=== PATIENT | male | born 1975 | race Caucasian/White ===

== ENCOUNTER 2018-08-13 14:41 | Observation (INO) | payer OTHER, SELFPAY ==
[2018-07-30 12:56] VITALS: BMI 38.2
[2018-08-12] VITALS (20 sets, daily range): BP systolic 113–138; BP diastolic 55–96; PULSE 55–76; RESP 8–18; TEMP 36.2–36.6; O2SAT 92–97; BMI 38.8
[2018-08-12] MEDS: LACTATED RINGERS 1,000 ML 100 ML IV (13:35)
--- NOTE | 2018-08-12 14:51 | PM.PREOP ---
Pre-operative Note Interval Note History & Physical reviewed/Exam performed by Physician: Yes Changes to H&P: No H&P completed within 30 days and has changed as indicated here:: See recent office note for H&P
[2018-08-12] MEDS: CEFAZOLIN 2 GM/100 ML FROZ.PIGGY IV (15:16)
--- NOTE | 2018-08-12 15:36 | SUR.OPER ---
Supine on padded OR bed, head on pillow, arms secured on padded arm boards at <90 degrees abduction, legs uncrossed, safety belt at thigh, tape over blanket over lower legs.
--- NOTE | 2018-08-12 15:40 | SUR.OPER ---
GLASSES IN LABELED BAG TO PACU WITH PATIENT
[2018-08-12] MEDS: BUPIVACAINE 0.5% (PF) VIAL 30 ML INJ (15:56)
--- NOTE | 2018-08-12 17:41 | PM.OP.1 ---
Operative Date/Time/Diagnoses Date of procedure: 08/12/18 Time of procedure: 17:41 Pre-op diagnosis: Incisional ventral hernias multiple Post-op diagnosis: same Procedure & Clinicians Procedure: Repair with underlay of mesh Same procedure as scheduled: Yes Indications: Symptomatic hernia Click Yes if Unassisted: Yes Anesthesia Type: General Operative Notes Findings: Fairly large defect at the umbilicus. 15 x 10 cm piece of mesh placed under it and primary closure over it. Closure Type: primary Specimen(s): none sent Prosthetic devices, grafts, tissues, transplants, or devices: Mesh Estimated Blood Loss (mL): 100 Blood products transfused: none Procedure in detail: The patient is placed supine on the operating room table underwent general endotracheal anesthesia. He was prepped and draped in the usual fashion. A vertical midline incision was made through the old scar and carried down into the subcu. I hernia sac and contents from the subcu. The sac was entered and felt under the area. There was a defect in the transverse incision adjacent to the vertical 1 which was small. I lifted the fat off of this defect and primarily closed it with a single [id number] 1. Ethibond suture. The defect was no more than a cm and half. No other defects under could be felt. I turned my attention to mobilizing the fascia in the midline and tissue on the underside of it to free it. I did this for at least 6 cm circumferentially under the edge of the fascial defect. We were in the peritoneal cavity in places and I sutured omentum together to cover so that intestine would not be against the mesh that I had intended to place. Though the mesh is treated to reduce adhesions I wanted to separate them as much as possible. Using a Pro Tacker I folded the edge of the flat piece of mesh slightly at the edge and tacked it circumferentially. In between these tacks I placed sutures of 1. Ethibond in an interrupted fashion to prevent intestine from coming through defects between the mesh and the abdominal wall. Once this was accomplished the midline was closed with interrupted [id number] 1. Ethibond sutures. The subcu was irrigated and closed with 3 0 interrupted Vicryl sutures. A portion of the skin was reapproximated with 4 O Vicryl dermal sutures and the skin was closed with teodoro. Because the umbilicus had to be mobilized and I had concern about its viability I removed it. Dressing was applied. And the patient was awakened extubated taken recovery area in good condition. Complications: none Condition: stable Disposition: PACU Plan for aftercare: For observation
[2018-08-12] MEDS: HYDROMORPHONE 2 MG INJ 0.5 MG IV ×6 (17:50→18:48)
[2018-08-12] MEDS: LACTATED RINGERS 1,000 ML 42 ML IV (18:00)
[2018-08-12] MEDS: LORazepam 2 MG/ML INJ 0.5 MG IV (18:21)
[2018-08-12] MEDS: OXYCODONE/ACETAMINOPHEN 5/325 TABLET 1 TAB PO ×2 (18:45→19:11)
--- NOTE | 2018-08-12 18:46 | SUR.PHASEI ---
Pt quickly awoke, had lots of pain treated with dilaudid and lorazepam. tolerated applesauce and medicated with percocet.
--- NOTE | 2018-08-12 19:35 | SUR.PHASEI ---
2nd percocet given to pt, pt transported up to room 219 and left in stable condition under kulwant's care.
[2018-08-12] MEDS: LACTATED RINGERS 1,000 ML 125 ML IV (19:58)
[2018-08-13] VITALS: BP 104/55; PULSE 67; RESP 18; TEMP 36.1; O2SAT 99
[2018-08-13] MEDS: LACTATED RINGERS 1,000 ML 125 ML IV ×2 (03:38→11:05)
[2018-08-13 04:32] VITALS: BP 107/65; PULSE 65; RESP 18; TEMP 36.6; O2SAT 99
[2018-08-13 05:44] LABS: Add Manual Diff / Slide Review NO; Basophils Absolute Auto 0 /uL (0-100); Basophils Percent Auto 0.3 % (0-2); Eosinophils Absolute Auto 0 /uL (0-450); Eosinophils Percent Auto 0.1 % (2-4); Hematocrit 38.8 % (41-53); Hemoglobin 13.3 g/dL (13.5-17.5); Lymphocytes Absolute Auto 700 /uL (1100-4500); Lymphocytes Percent Auto 8.9 % (25-40); Mean Corpuscular HGB Conc 34.3 % (30-36); Mean Corpuscular Hemoglobin 29.5 PG (26-34); Mean Corpuscular Volume 85.8 fL (80-100); Monocytes Absolute Auto 600 /uL (0-900); Monocytes Percent Auto 6.8 % (3-14); Neutrophils Absolute Auto 7000 /uL (1500-7000); Neutrophils Percent Auto 83.9 % (50-75); Platelet Count 208 X10^3/uL (150-400); Red Blood Cell Count 4.52 X10^6/uL (4.5-5.9); Red Cell Distribution Width 14.1 % (11.6-14.8); White Blood Cell Count 8.3 X10^3/uL (4.5-11.0)
[2018-08-13 08:00] VITALS: BP 104/69; PULSE 62; RESP 16; TEMP 36; O2SAT 100
[2018-08-13] MEDS: OXYCODONE/ACETAMINOPHEN 5/325 TABLET 2 TAB PO ×2 (08:11→17:59)
[2018-08-13] MEDS: GABAPENTIN 300 MG CAPSULE PO (08:11)
--- NOTE | 2018-08-13 11:52 | CM.DANOTE ---
Discharge Planning/Care Management DCP: assessment: case received, EMR reviewed. Observed pt ambulating about the unit this morning/independently. Met now with pt and his father, at bedside. Introduced self and role. Pt is a 43 year old male who admitted last night for a scheduled hernia surgery. Surgeon: Dr. Baez PCP: [facility] providers: currently seeing a Dr. García (?sp) as Dr. Perez is retiring. Pt notes some concern re a little lump that he has noted since his morning ambulation. He expects to see Dr. Blackburn this afternoon and will discuss same with him. P: home when stable for same. Father will transport. CM Discharge Assessment Start: 08/13/18 11:50 Freq: Status: Active Protocol: Document 08/13/18 11:51 ITV (Rec: 08/13/18 11:51 ITV [id number]) Discharge Planning Assessment Advance Directives? Yes History Provided By Patient Medical Record Independent with ADL's Yes Is patient alert and oriented? Yes Review Status In Process Next Review Type Continued Stay Review Pre-Anesthesia Assessment Start: 07/30/18 12:56 Freq: Status: Complete Protocol: Document 07/30/18 12:56 CAB (Rec: 07/30/18 13:02 CAB [id number]) Pre-Anesthesia Assessment Patient Information Reviewed Via Phone Assessment Assessment Completed With Patient Primary Care Provider [facility] Seen Specialist in Last 12 Months Yes Specialist Seen General surgeon Primary Language French Replenisher Required No Height 180.34 cm Weight 124.284 kg Body Mass Index (BMI) 38.2 Hearing Ability Normal Visual Assist Glasses Dentition Type Teeth, Natural Present Barriers to Learning None Hx Anesthesia Reactions No Hx Family Anesthesia Reaction No Hx Malignant Hyperthermia No Hx Blood Transfusions No Anesthesia Review Requested No Membership Secretary No alcohol intake current Alcohol Intake Frequency Other: Occasional Smoking Status Never smoker Substance Use Type does not use Pain Present Pain Reported History of Falling (Recent or History of No ) Patient is completely paralyzed or No completely immobile Mental Status Oriented to own ability Is patient on oxygen? No Does patient have JONES/SOB No Hx Sleep Apnea No Currently Taking a Beta Rudy No Hx Chest Pain No Hx SOB No Hx Syncope or Dizziness No Anti-Coagulant Therapy No Has a Trash Man No Cardiac Testing No Hx Pacemaker/ICD No Pacemaker Rep Required? No Cardiac Clearance Received Not Applicable Urinary Catheter Present No Hx Urinary Self Catheterization No Diabetes No Marital Status Single Lives With family Patient Discharge Plan Description Return Home
--- NOTE | 2018-08-13 12:05 | PC.NURSE ---
Post-op: sThis is nothing compared to what I went through before, I had a wound vac and everything then. Pt tolerates clear liquids w/out problems. Po pain meds given per request. Received a [address] Blackburn. has been up and amb in hallways. Has good bt's, no nausea. Pt reports he had an ostomy in the past with a take down. Pt also says he still feels a lump from where his surgery was, wants to know what it is. He was instructed thats a question for Dr. Blackburn and he will make him aware. Voiced no concerns. Cont w/poc.
[2018-08-13 16:30] VITALS: BP 114/76; PULSE 65; RESP 18; TEMP 36.5; O2SAT 97
--- NOTE | 2018-08-13 18:25 | P.DS_ITS ---
History of Present Illness Date Patient Seen: 08/13/18 Time Patient Seen: 18:20 Chief complaint: [id number] Narrative: Patient is a gentleman admitted for repair of incisional hernias related to prior operations. Discharge Providers Date of admission: 08/13/18 14:41 Discharge Date: 08/13/18 Primary care physician: Reddy Perez Consults: 08/12/18 19:32 Consult to Discharge Planning Routine Comment: 08/12/18 19:41 Consult to Respiratory Therapy Evaluate & Treat Comment: r/o possible latrice Physician Instructions: Evaluate and treat Discharge provider: Alexandro Blackburn MD Summary Discharge Diagnosis: Incisional ventral hernias Chronic constipation Obesity with a BMI of 38.8 Hospital Course: Patient underwent a complex repair of 2 hernias. One was a very small hernia in his prior ostomy incision. One was a larger hernia at his umbilical area from his exploratory laparotomy incision. I could feel no other hernias by examining the underside is a of his abdominal wall. He did quite well postoperatively. The morning after he was tolerating clear liquids and by evening was on a general diet. He had no nausea or vomiting. His pain was being controlled with oral medication. He was discharged to follow up in the office. Status at Discharge Cognitive/behavioral status at discharge: oriented Functional status at discharge: independent ambulation Overall status at discharge: patient is not back to baseline (Incisional pain) Exam Vital Signs (past 8 hours): - 08/13/18 16:30 Temperature 97.7 F Pulse Rate 65 Respiratory Rate 18 Blood Pressure 114/76 Pulse Oximetry 97 Oxygen Delivery Method Room Air Oxygen Flow Rate 0 Narrative Exam Narrative: Lungs clear. Abdomen is flat soft. No unusual tenderness. Dressing is dry and intact. No obvious cellulitis. Objective Labs Result Diagrams: 08/13/18 05:27 Labs: Laboratory Results - last 24 hr 08/13/18 05:27 WBC 8.3 RBC 4.52 Hgb 13.3 L Hct 38.8 L MCV 85.8 MCH 29.5 MCHC 34.3 RDW 14.1 Plt Count 208 Neut % (Auto) 83.9 H Lymph % (Auto) 8.9 L [place] % (Auto) 6.8 Eos % (Auto) 0.1 L Baso % (Auto) 0.3 Neut # (Auto) 7000 Lymph # (Auto) 700 L [place] # (Auto) 600 Eos # (Auto) 0 Baso # (Auto) 0 Discharge Plan Discharge Plan Patient Disposition: Home Discharge comment: Your operation went well. You have a large piece of mesh under the hernia repair. Do not lift over 10 lb for at least 6 weeks. No exercise other than leisure walking for the next 6 weeks. Discharge Med Rec/Prescriptions Prescriptions: New oxycodone-acetaminophen [Percocet] 5-325 mg tablet See Rx Instructions .ROUTE .COMPLEX PRN (Reason: painful procedure) Qty: 25 RF: 0 gabapentin 300 mg capsule 300 mg PO BID Qty: 60 RF: 0 ibuprofen 600 mg tablet 600 mg PO QID PRN (Reason: painful procedure) Qty: 30 RF: 1 Continued krill oil 500 mg capsule 2 cap PO DAILY RF: 0 Mg Multivitamin For Men 200-175-250 mcg Tablet 1 tab PO DAILY RF: 0 Hydroxycut Elite 2 cap PO BID RF: 0 lubiprostone 8 mcg capsule 1 tab PO BID RF: 0 Follow up/Referrals: Reddy Perez [Primary Care Provider] - Provider Discharge Instructions Diet: Diet as Tolerated Activity: You may walk. For 6 weeks: No running or other exercise. Do not lift over 10 lb. Do not strain or push heavy objects. At the end of 6 weeks you can gradually return to normal activity over. About 2 or [address] a or operate machinery until you are pain free off medication. Skin/Wound/Dressing Care Report to your healthcare provider any signs of infection, such as:: increased pain, unusual drainage and unusual redness Dressing: You may remove her dressing on your wound tomorrow. You can then shower. No pool or tub for at least 3 weeks. Visit Report/Discharge Packet Instructions: [facility]: Wound Care Stand Alone Forms: Surgery Discharge Discharge Data Primary Care Provider: Reddy Perez Attending Provider: Alexandro Blackburn Admit Date/Time: 08/13/18 14:41 Quality VTE Deep Vein Thrombosis/Pulmonary Embolism Present on Admission: Yes
[2018-08-13 19:00] VITALS: BP 140/86; PULSE 87; RESP 20; TEMP 37; O2SAT 96
== END 2018-08-13 19:08 | disposition home or self-care (01) ==
LOC: OR 14:53
PROVIDERS: Admitting Provider Specialist; PCP Family Medicine; Visit Provider Specialist
PROC: (CPT 49560; principal; 2018-08-12 13:15)
DX: K43.2 Incisional hernia without obstruction or gangrene (principal); E66.9 Obesity, unspecified; Z68.38 Body mass index [BMI] 38.0-38.9, adult; K59.09 Other constipation
CPT/HCPCS: 49560; 36415; 85025; C1781; G0378; J0690; J1100; J1170; J2060; J2250; J2405; J2704; J3010